=== PATIENT | female | born 1990 | race Caucasian/White ===

== ENCOUNTER 2021-06-17 20:02 | Emergency (ER) | payer MEDICAID ==
[2021-06-17 20:46] LABS: BASO # 0.04 (0.02-0.10); EOS # 0.27 (0.04-0.40); HEMATOCRIT 39.2 % (37.0-47.0); HEMOGLOBIN 13.1 g/dL (12.5-16.0); MEAN CELL VOLUME 91 fl (78-100); MEAN CORPUSCULAR HEMOGLOBIN 30 pg (27-31); MEAN CORPUSCULAR HGB CONC 33 g/dL (33-37); MEAN PLATELET VOLUME 9.2 fl (7.4-10.4); MONO # 0.43 (0.20-0.80); NEU # 3.91 (1.40-6.50); PLATELET COUNT 264 K/mm3 (130-400); RED BLOOD COUNT 4.31 M/mm3 (4.10-5.30); RED CELL DISTRIBUTION WIDTH 12.1 % (11.5-14.5); WHITE BLOOD COUNT 6.8 K/mm3 (4.8-10.8)
[2021-06-17 20:57] LABS: ALBUMIN 4.3 g/dL (3.5-5.0)
[2021-06-17 20:58] LABS: POTASSIUM 3.8 mmol/L (3.5-5.1)
[2021-06-17 20:59] LABS: CALCIUM 9.5 mg/dL (8.3-10.5)
[2021-06-17 21:00] LABS: TOTAL PROTEIN 7.2 g/dL (6.4-8.3)
[2021-06-17 21:02] LABS: TOTAL BILIRUBIN 0.5 mg/dL (0.2-1.2)
[2021-06-17 21:28] LABS: URINE APPEARANCE HAZY; URINE COLOR YELLOW
[2021-06-17 21:29] LABS: URINE BILIRUBIN 1+ (NEGATIVE); URINE BLOOD 250 ery/uL (NEGATIVE); URINE GLUCOSE NEGATIVE (NEGATIVE); URINE KETONE NEGATIVE (NEGATIVE); URINE LEUKOCYTE ESTERASE TRACE (NEGATIVE); URINE NITRATE NEGATIVE (NEGATIVE); URINE PROTEIN(semi-quant) TRACE mg/dL (NEGATIVE); URINE UROBILINOGEN NORMAL (NORMAL); URINE WBC 0-1 /hpf (0-3)
[2021-06-17] MEDS ORDERED: FAMOTIDINE20 MG PO (22:36)
[2021-06-17 22:50] VITALS: BP 119/71
== END 2021-06-17 22:50 | disposition home or self-care (01) ==
LOC: ED 20:02
PROVIDERS: Family Medicine
DX: R10.13 Epigastric pain (principal); R10.11 Right upper quadrant pain; F17.210 Nicotine dependence, cigarettes, uncomplicated; Z87.19 Personal history of other diseases of the digestive system; Z87.440 Personal history of urinary (tract) infections
CPT/HCPCS: J1885; J3490

== ENCOUNTER → 2021-06-19 | Outpatient (CLI) | payer MEDICAID ==
[~2021-06-19] MED LIST: FAMOTIDINE20 MG PO
== END ==
LOC: RAD 07:15
DX: K80.20 Calculus of gallbladder without cholecystitis without obstruction (principal)

== ENCOUNTER 2022-02-05 19:59 | Emergency (ER) | payer MEDICAID ==
[~2022-02-05] VITALS: Ht 167.6 cm; Wt 61.4 kg
[2022-02-05 20:18] VITALS: BP 148/92
== END 2022-02-05 20:40 | disposition left against medical advice (07) ==
LOC: ED 19:59
DX: R25.8 Other abnormal involuntary movements (principal)